=== PATIENT | female | born 2000 | race Caucasian/White ===

== ENCOUNTER 2024-11-30 07:40 | Emergency (ER) | payer MEDICAID, SELFPAY ==
[2024-11-30 07:55] VITALS: BP 142/92; PULSE 84; RESP 18; TEMP 36.8; O2SAT 100; BMI 39.6
--- NOTE | 2024-11-30 08:23 | PD.EDRME ---
Rapid Medical Screening Exam RME Arrival date/time: 11/30/24 07:40 This is a 24-year-old female who states she is approximately 10 weeks . Patient does not remember exactly when her last menstrual period was. Patient states she has had abdominal pain and diarrhea for the past 4 days. Patient is also complaining of some nausea. Patient states she feels dehydrated. I have greeted and performed a focused initial assessment of this patient. Initial appropriate labs ordered at this time. A comprehensive ED assessment and evaluation of the patient and analysis of all test and completion of medical decision making process will be conducted by additional ED provider. Chief Complaint: Nausea/Vomiting/Diarrhea Time Seen by Provider: 11/30/24 07:44 Vital signs: Vital Signs Temperature 98.2 F 11/30/24 07:55 Pulse Rate 84 11/30/24 07:55 Respiratory Rate 18 11/30/24 07:55 Blood Pressure 142/92 H 11/30/24 07:55 Pulse Oximetry (%) 100 11/30/24 07:55 Oxygen Delivery Method Room Air 11/30/24 07:55
[2024-11-30 08:41] LABS: Collection Type, Urine Voided
[2024-11-30] MEDS: ONDANSETRON ODT 4 MG TABRAP PO (08:42)
[2024-11-30 09:02] LABS: Basophils % (Auto) 0 % (0-2.5); Eosinophils # (Auto) 0.1 Thou/mm3 (0.0-0.5); Eosinophils % (Auto) 1 % (0-10); Hematocrit 37.6 % (36.0-46.0); Hemoglobin 13.1 g/dL (12.0-16.0); Immature Granulocytes % (Auto) 1 % (0-0); Immature Granulocytes Auto 0.12 Thou/mm3 (0.00-0.00); Lymphocytes # (Auto) 1.4 Thou/mm3 (1.0-4.8); Lymphocytes % (Auto) 15 % (10-50); Mean Corpuscular HGB Conc 34.8 g/dl (31.0-37.0); Mean Corpuscular Volume 89 fL (80-100); Monocytes # (Auto) 0.5 Thou/mm3 (0.0-0.8); Monocytes % (Auto) 5 % (0-12); Neutrophils # (Auto) 7.1 Thou/mm3 (1.8-7.7); Neutrophils % (Auto) 78 % (37-80); Nucleated Red Blood Cell % 0 /100 WBC (0); Platelet Count 227 Thou/mm3 (140-440); RDW Standard Deviation 42.8 fL (36.4-46.3); Red Blood Count 4.22 Miln/mm3 (4.00-5.20); White Blood Count 9.1 Thou/mm3 (3.6-11.0)
[2024-11-30 09:12] LABS: Alanine Aminotransferase 61 U/L (10-49); Albumin, Serum 4.3 gm/dL (3.5-5.0); Albumin/Globulin Ratio 1.5 (1.2-2.2); Alkaline Phosphatase 82 U/L (46-116); Anion Gap 11 (7-16); Aspartate Amino Transferase 28 U/L (0-34); BUN/Creatinine Ratio 7 Ratio (12-20); Beta HCG,Quantitative > 1000 mIU/mL (<5.0); Bilirubin,Total 0.5 mg/dL (0.3-1.2); Blood Urea Nitrogen < 5 mg/dL (9-23); Calcium 8.7 mg/dL (8.3-10.6); Calcium (Corrected) 8.7 mg/dL (8.5-10.1); Carbon Dioxide 23.3 mMol/L (20.0-31.0); Chloride 105 mMol/L (98-107); Creatinine (Component) 0.7 mg/dL (0.6-1.3); Estimated Creatinine Clearance 138.6 mL/min (>60); Globulin 2.8 gm/dL (2.3-3.5); Glucose 141 mg/dL (74-106); Osmolality,Calculated 276 (275-295); Potassium 3.5 mMol/L (3.4-5.1); Sodium 139 mMol/L (136-145); Total Protein 7.1 gm/dL (5.7-8.2); eGFR > 60 See Note
[2024-11-30 09:13] LABS: Bacteria,Urine Rare; Bilirubin,Urine Negative (Negative); Blood,Urine Negative (Negative); Clarity,Urine Clear (Clear/Hazy); Color,Urine Colorless (Lt Yel-Yel); Culture Indicated,Urine Not Indicated; Glucose, Urine Negative (Negative); Ketones,Urine Negative (Negative); Leukocyte Esterase,Urine Negative (Negative); Nitrite,Urine Negative (Negative); PH,Urine 6.5 (5.0-7.0); Protein,Urine Negative (Neg - Trace); RBC,Urine 1 /hpf (0-3); Specific Gravity,Urine 1.005 (1.001-1.035); Squamous Epithelial Cell,Urine 4 /hpf (0-5); Urobilinogen,Urine Negative mg/dL (0.0-1.0); WBC,Urine 1 /hpf (0-5)
--- NOTE | 2024-11-30 09:29 | XR_ITS ---
Examination: Complete OB ultrasound, less than 14 weeks, transabdominal Date and time of exam: November 30, 2024, 0930 hrs. Comparison August 02, 2022 Indications: Diarrhea abdominal pelvic pain beginning 4 days ago Technique: Obstetrical ultrasound images less than 14 weeks performed via transabdominal imaging Findings: A normal shaped single intrauterine gestation is present in the uterus. pole 3.0 cm corresponds to 9 weeks 6 days gestational age Cardiac motion 157 BPM. No subchorionic hemorrhage. Ultrasonographic survey of visible and placental structures unremarkable. Amniotic fluid volume appears appropriate for this estimated gestational age. Right ovary 3.9 cm arterial flow. Left ovary 4.4 cm arterial flow Impression: Viable intrauterine gestation 9 weeks 6 days.
--- NOTE | 2024-11-30 12:07 | EDNOTE_ITS ---
Nausea/Vomit./Diarrhea-RME/HPI General Chief complaint: Nausea/Vomiting/Diarrhea Stated complaint: DIARRHEA X 4 DAYS; FEEL DEHYDRATED ; 10 WK PREG Time Seen by Provider: 11/30/24 07:44 Arrival date/time: 11/30/24 07:40 RME / HPI RME / HPI Narrative: 24-year-old female who states she is approximately 10 weeks . Patient does not remember exactly when her last menstrual period was. Patient states she has had abdominal pain and diarrhea for the past 4 days. Patient is also complaining of some nausea. Patient states she feels dehydrated. Patient denies any fever. Denies any dysuria denies any frequency denies any vaginal spotting or bleeding. No medication was taken prior to arrival. Patient told me that she is still able to drink fluids. Related Data Home Medications ?Medication ?Instructions ?Recorded ?Confirmed albuterol sulfate 90 mcg/actuation 1 inh inhalation QI D PRN 08/12/22 08/12/22 aerosol inhaler Bronchospasm Previous Rx's ?Medication ?Instructions ?Recorded fluconazole 150 mg tablet 150 mg PO Q3D 2 doses #2 tab s 08/13/23 Allergies Allergy/AdvReac Type Severity Reaction Status Date / Time No Known Allergies Allergy Verified 11/30/24 07:44 Review of Systems Review of Systems Narrative Review of Systems: Review of system reviewed and within normal limits except mentioned in HPI ED Exam Narrative Physical exam: VITAL SIGNS: Reviewed. GENERAL APPEARANCE: Alert and interactive, follows commands, no acute distress, HEAD AND FACE: Non-traumatic. ENT: PERRL, pink conjunctivitis, eyelid no trauma, Mucous membrane moist. NECK: Supple, nontender, no nuchal rigidity. CHEST: No tenderness, no crepitus, no paradoxical movement, no retractions. LUNGS: Clear, well ventilated, symmetric, no rales, no wheezing, no ronchi, no stridor, good breath sounds bilaterally. HEART: Regular rate, regular rhythm, no murmur, no gallops. ABDOMEN: Soft, positive bowel sounds, nondistended, no guarding, nontender, no rebound, no masses, RECTAL: Deferred. GENITAL: Deferred. NEUROLOGICAL: Gross motor function intact sensory function intact, Appropriate for age. MUSCULOSKELETAL: low back nontender, full range of motion. EXTREMITIES: Nontender, full range of motion. SKIN: Color pink, dry, no rash, no lacerations, no abrasions, no contusions. LYMPHATICS: Deferred. Course Quality Measures none Orders Category Date Time Status Bedside COVID-19 Antigen Test NOW Care 11/30/24 08:25 Active Bedside Influenza A&B Antigen Test NOW Care 11/30/24 08:25 Completed US OB <= 14 weeks fetus Stat Exams 11/30/24 09:29 Completed Beta HCG,Quantitative Stat Lab 11/30/24 08:35 Completed CBC Stat Lab 11/30/24 08:35 Completed Comprehensive Metabolic Panel Stat Lab 11/30/24 08:35 Completed Urinalysis, C/S if Indicated Stat Lab 11/30/24 08:24 Completed Urine Culture Stat Lab 11/30/24 08:24 Received Ondansetron Odt [Zofran Odt] Med 11/30/24 08:23 Discontinued 4 mg PO X1 ONE Vital Signs Vital signs: Vital Signs Temperature 98.2 F 11/30/24 07:55 Pulse Rate 84 11/30/24 07:55 Respiratory Rate 18 11/30/24 07:55 Blood Pressure 142/92 H 11/30/24 07:55 Pulse Oximetry (%) 100 11/30/24 07:55 Oxygen Delivery Method Room Air 11/30/24 07:55 Nausea/Vomiting/Diarrhea MDM Narrative MDM Narrative:: 24-year-old female who states she is approximately 10 weeks . Patient does not remember exactly when her last menstrual period was. Patient states she has had abdominal pain and diarrhea for the past 4 days. Patient is also complaining of some nausea. Patient states she feels dehydrated. Patient d enies any fever. Denies any dysuria denies any frequency denies any vaginal spotting or bleeding. No medication was taken prior to arrival. Patient told me that she is still able to drink fluids. Patient's workup today all came back unremarkable CBC no leukocytosis, CMP unremarkable, urinalysis no sign of UTI and no sign of dehydration. ultrasound also came back unremarkable and showed intrauterine gestation about 9 weeks and 6 days old. Results discussed with the patient. Patient appears nontoxic and hemodynamically stable. Patient discharged home and instructed to follow-up with primary care provider in 24 to 48 hours. Instructed to return to the emergency department immediately if worsening of symptoms Patient data External records reviewed:: None Clinical information provided by:: patient Social determinants that could affect healthcare access:: none Patient has the following chronic illnesses:: None How is presenting disease/condition affected by chronic disease/condition?: no chronic disease Evaluation data The following diagnostics were reviewed and interpreted by me:: lab results and radiology exam(s) Lab and/or radiology exams considered but not ordered:: None Interpretation Summary: See results MDM Medications / Prescriptions Medications / Prescriptions considered but not ordered:: None Medication administrations:: Medication Administration History Discontinued Medications Ondansetron HCl (Ondansetron Odt 4 Mg Tabrap) 4 mg PO X1 ONE; Protocol Stop: 11/30/24 08:24 Last Admin: 11/30/24 08:42 Dose: 4 mg Documented By: TRACEY Sharma Consultations Consultation(s) initiated? (list below): No Diagnosis Nausea Differential Diagnosis: gastroenteritis, dehydration and other () Most likely diagnosis given after review of the tests above:: Gastroenteritis, Admission Indicated Admission indicated?: not indicated Admission Request Was there a request for admission?: No Disposition Plan Disposition Plan: Discharge Discharge Attestation Discharge Attestation: The patient was given an opportunity to ask questions and understood the discharge instructions. Discharge instructions specifically effects, indications for sooner follow up or return to the emergency department, and the expected course of current diagnosis. Patient condition: Stable Discharge Plan Plan Patient Disposition: HOME (Self Care) Discharge Disposition comment: Stable Prescriptions/Referrals Prescriptions/Med Rec: No Action albuterol sulfate 90 mcg/actuation Hfa Aerosol Inhaler 1 inh INHALATION QID PRN (Reason: Bronchospasm) fluconazole 150 mg tablet 150 mg PO Q3D Qty: 2 0RF Rx Instructions: may repeat second dose 72 hrs after first dose if symptoms persist Referrals: Mello Candelaria MD [Primary Care Provider] - In 1 week Problem List Clinical Impression: Gastroenteritis, Patient/Caregiver Discharge Instructions Discharge Activity: activity as tolerated Education Materials: First Trimester Additional Instructions: Thank you for the opportunity for serving you today. You are stable for discharged . You are advised to: Follow-up with your PCP in 1 to 2 days Return to ED for worsening of symptoms Increase oral fluids including Pedialyte Print Language: Amharic Stand Alone Forms: Julieta Award Info., Work/School Release, Patient Portal Info Letter ODALIS/MARCUS Supervising Physician ODALIS/MARCUS Supervising Physician: MD Cristian
[2024-11-30 12:15] VITALS: BP 143/93; PULSE 77; RESP 20; TEMP 36.8; O2SAT 97
== END 2024-11-30 12:17 | disposition home or self-care (01) ==
PROVIDERS: Nurse Practitioner Family; Emergency Provider Emergency Medicine; PCP Obstetrics & Gynecology
DX: O99.611 Diseases of the digestive system complicating pregnancy, first trimester (principal); K52.9 Noninfective gastroenteritis and colitis, unspecified; Z3A.10 10 weeks gestation of pregnancy
CPT/HCPCS: 36415; 76801; 80053; 81001; 84702; 85025; 87086; 87400; 87811; 99284; Q0162